=== PATIENT | male | born 1980 | race Caucasian/White ===

== ENCOUNTER 2018-01-17 16:54 | Outpatient (REF) | payer BC, SELFPAY ==
[2018-01-17 21:50] LABS: BUN 12 mg/dL (7-18); Calcium 9.2 mg/dL (8.5-10.1); Chloride 102 mmol/L (98-107); Cholesterol 211 mg/dL (50-200); Glucose 88 mg/dL (70-100); HDL Cholesterol 47 mg/dL (40-60); LDL CHOLESTEROL 142 mg/dL (<100); Potassium 3.7 mmol/L (3.5-5.1); Sodium 139 mmol/L (136-145); Triglyceride 89 mg/dL (30-150)
[2018-01-17 21:52] LABS: HCT 41.9 % (40.0-50.0); HGB 14.2 g/dL (13.5-17.5); Mean Corp. HGB Concentration 33.9 g/dL (32.0-36.0); Mean Corpuscular Hemoglobin 30.9 pg (27.0-33.0); Mean Corpuscular Volume 91.1 fL (80-95); Mean Platelet Volume 9.4 fL (8.0-11.0); Platelet Count 329 x1000/uL (130-400); RBC Distribution Width 12.8 % (11.8-14.1); White Blood Cell Count 9.45 k/cumm (4.4-10.8)
== END 2018-01-17 17:14 ==
LOC: NCHCN 16:54
PROVIDERS: PCP Nurse Practitioner Family; Visit Provider Nurse Practitioner Family
DX: Z00.00 Encounter for general adult medical examination without abnormal findings (principal); Z13.228 Encounter for screening for other metabolic disorders; Z13.220 Encounter for screening for lipoid disorders; Z86.2 Personal history of diseases of the blood and blood-forming organs and certain disorders involving the immune mechanism
CPT/HCPCS: 80048; 80061; 83721; 85027

== ENCOUNTER 2020-06-04 18:00 | Outpatient (REF) | payer BC, SELFPAY ==
[2020-06-04 14:53] LABS: ALT 29 U/L (16-63); AST 16 U/L (15-37); Albumin 4.1 g/dL (3.4-5.0); Alkaline Phosphatase 79 U/L (46-116); BUN 14 mg/dL (7-18); Bilirubin, Total 0.4 mg/dL (0.2-1.0); CREATININE 0.8 mg/dL (0.70-1.30); Calcium 8.9 mg/dL (8.5-10.1); Calculated LDL 126 mg/dL (<100); Chloride 105 mmol/L (98-107); Cholesterol 192 mg/dL (<200); Glucose 91 mg/dL (74-106); HDL Cholesterol 61 mg/dL (40-60); Potassium 3.7 mmol/L (3.5-5.1); Sodium 143 mmol/L (136-145); Total Protein 7.8 g/dL (6.4-8.2); Triglyceride 26 mg/dL (<150)
== END 2020-06-04 18:01 | disposition home or self-care (01) ==
LOC: NCHCN 18:00
PROVIDERS: PCP Nurse Practitioner Family; Visit Provider Nurse Practitioner Family
DX: Z00.00 Encounter for general adult medical examination without abnormal findings (principal); Z13.220 Encounter for screening for lipoid disorders; Z13.228 Encounter for screening for other metabolic disorders
CPT/HCPCS: 80053; 80061

== ENCOUNTER 2020-07-07 14:37 | Outpatient (REF) | payer BC, SELFPAY ==
[2020-07-07 21:40] LABS: HCT 39.5 % (40.0-50.0); HGB 13.4 g/dL (13.5-17.5); MCH 31.3 pg (27.0-33.0); MCHC 33.9 % (32.0-36.0); MCV 92.3 fL (80-95); MPV 9.5 fL (8.0-11.0); Platelet Count 300 10^3/uL (130-400); RBC 4.28 10^6/uL (4.36-5.78); RDW 11.9 % (11.8-14.1); RDW-SD 40.1 fL; WBC 6.85 10^3/uL (4.4-10.8)
[2020-07-07 22:16] LABS: TSH (W/Ref FT4) 0.55 uIU/mL (0.36-3.74); Vitamin B12 229 pg/mL (193-986)
[2020-07-09 05:01] LABS: Vitamin D 25 Total 10.6 ng/mL (30-100)
== END 2020-07-07 14:38 | disposition home or self-care (01) ==
LOC: NCHCN 14:37
PROVIDERS: PCP Nurse Practitioner Family; Visit Provider Nurse Practitioner Family
DX: R53.83 Other fatigue (principal); Z79.899 Other long term (current) drug therapy
CPT/HCPCS: 82306; 85027; 82607; 84443

== ENCOUNTER 2020-08-31 12:20 | Outpatient (REF) | payer BC, SELFPAY ==
[2020-08-31 22:03] LABS: Vitamin D 25 Total 31.3 ng/mL (30-100)
[2020-08-31 22:08] LABS: Vitamin B12 444 pg/mL (193-986)
== END 2020-08-31 12:21 | disposition home or self-care (01) ==
LOC: NCHCN 12:20
PROVIDERS: PCP Nurse Practitioner Family; Visit Provider Nurse Practitioner Family
DX: D64.9 Anemia, unspecified (principal); E55.9 Vitamin D deficiency, unspecified
CPT/HCPCS: 82306; 82607

== ENCOUNTER 2021-07-01 13:41 | Outpatient (REF) | payer BC, SELFPAY ==
[2021-07-01 21:03] LABS: ALT 22 U/L (16-63); AST 13 U/L (15-37); Alkaline Phosphatase 87 U/L (46-116); Anion Gap 8.3 mmol/L (3-11); BUN 14 mg/dL (7-18); Bilirubin, Total 0.3 mg/dL (0.2-1.0); CO2 29.7 mmol/L (21.0-32.0); Calcium 8.8 mg/dL (8.5-10.1); Calculated LDL 156 mg/dL (<100); Chloride 104 mmol/L (98-107); Cholesterol 225 mg/dL (<200); Glucose 91 mg/dL (74-106); HDL Cholesterol 53 mg/dL (40-60); Sodium 142 mmol/L (136-145); Triglyceride 80 mg/dL (<150)
== END 2021-07-01 13:42 | disposition home or self-care (01) ==
LOC: NCHCN 13:41
PROVIDERS: PCP Nurse Practitioner Family; Visit Provider Nurse Practitioner Family
DX: Z00.00 Encounter for general adult medical examination without abnormal findings (principal); Z13.220 Encounter for screening for lipoid disorders; Z13.228 Encounter for screening for other metabolic disorders
CPT/HCPCS: 80053; 80061

== ENCOUNTER 2021-12-28 18:01 | Outpatient (REF) | payer BC, SELFPAY ==
[2021-12-28 21:08] LABS: HCT 38.4 % (40.0-50.0); HGB 12.7 g/dL (13.5-17.5); MCH 30.4 pg (27.0-33.0); MCHC 33.1 % (32.0-36.0); MCV 92 fL (80-95); MPV 9.3 fL (8.0-11.0); Platelet Count 315 10^3/uL (130-400); RBC 4.18 10^6/uL (4.36-5.78); RDW 11.9 % (11.8-14.1); RDW-SD 40.3 fL; WBC 7.64 10^3/uL (4.4-10.8)
[2021-12-28 21:53] LABS: ALT 20 U/L (16-63); AST 19 U/L (15-37); Albumin 3.8 g/dL (3.4-5.0); Alkaline Phosphatase 80 U/L (46-116); Anion Gap 5.6 mmol/L (3-11); BUN 17 mg/dL (7-18); Bilirubin, Total 0.3 mg/dL (0.2-1.0); CO2 30.4 mmol/L (21.0-32.0); CREATININE 1.1 mg/dL (0.70-1.30); Calcium 8.6 mg/dL (8.5-10.1); Chloride 102 mmol/L (98-107); Estimated GFR 87.57 (mL/min/1.73m2); Glucose 90 mg/dL (74-106); Potassium 3.4 mmol/L (3.5-5.1); Sodium 138 mmol/L (136-145); TSH (W/Ref FT4) 1.38 uIU/mL (0.36-3.74); Total Protein 7.8 g/dL (6.4-8.2); Vitamin B12 901 pg/mL (193-986)
== END 2021-12-28 18:02 | disposition home or self-care (01) ==
LOC: NCHCN 18:01
PROVIDERS: PCP Nurse Practitioner Family; Visit Provider Nurse Practitioner Family
DX: R53.83 Other fatigue (principal)
CPT/HCPCS: 80053; 85027; 82607; 84443

== ENCOUNTER 2022-02-10 13:36 | Outpatient (REF) | payer BC, SELFPAY ==
[2022-02-10 21:07] LABS: Abs Immature Grans 0.02 10^3/uL (0.0-0.06); Absolute Basophil Count 0.03 10^3/uL (0.0-0.2); Absolute Eosinophil Count 0.17 10^3/uL (0.0-0.7); Absolute Lymphocyte Count 2.69 10^3/uL (1.2-3.4); Absolute Monocyte Count 0.82 10^3/uL (0.1-0.8); Absolute Neutrophil Count 4.71 10^3/uL (1.2-6.7); Basophils % 0.4; HCT 40.1 % (40.0-50.0); HGB 13.4 g/dL (13.5-17.5); Immature Grans % 0.2; Lymphocytes % 31.9; MCH 30.7 pg (27.0-33.0); MCHC 33.4 % (32.0-36.0); MCV 92 fL (80-95); MPV 9.2 fL (8.0-11.0); Monocytes % 9.7; Neutrophils % 55.8; Platelet Count 321 10^3/uL (130-400); RBC 4.37 10^6/uL (4.36-5.78); RDW-SD 40.5 fL; WBC 8.44 10^3/uL (4.4-10.8)
[2022-02-10 21:26] LABS: Ferritin 406 ng/mL (26-388)
[2022-02-10 22:40] LABS: Iron 74 ug/dL (65-175); Total Iron Binding Capacity 240 ug/dL (250-450); Transferrin Sat 31 % (20-55)
[2022-02-10 23:43] LABS: Vitamin D 25 Total 26.9 ng/mL (30-100)
== END 2022-02-10 13:37 | disposition home or self-care (01) ==
LOC: NCHCN 13:36
PROVIDERS: PCP Nurse Practitioner Family; Visit Provider Nurse Practitioner Family
DX: D64.9 Anemia, unspecified (principal); E55.9 Vitamin D deficiency, unspecified
CPT/HCPCS: 82306; 82728; 83540; 83550; 85025

== ENCOUNTER 2022-04-20 11:40 | Outpatient (REF) | payer BC, SELFPAY ==
[2022-04-20 16:00] LABS: Vitamin D 25 Total 30.7 ng/mL (30-100)
== END 2022-04-20 11:41 | disposition home or self-care (01) ==
LOC: NCHCN 11:40
PROVIDERS: PCP Nurse Practitioner Family; Visit Provider Family Medicine
DX: E55.9 Vitamin D deficiency, unspecified (principal)
CPT/HCPCS: 82306

== ENCOUNTER 2023-06-27 11:23 | Outpatient (REF) | payer BC, SELFPAY ==
[2023-06-27 14:28] LABS: HGB 13.6 g/dL (13.5-17.5); MCV 91 fL (80-95); MPV 9.5 fL (8.0-11.0); Platelet Count 301 10^3/uL (130-400); RBC 4.39 10^6/uL (4.36-5.78); RDW 12.3 % (11.8-14.1); RDW-SD 41.1 fL; WBC 7.05 10^3/uL (4.4-10.8)
[2023-06-27 15:03] LABS: ALT 26 U/L (16-63); AST 21 U/L (15-37); Albumin 3.8 g/dL (3.4-5.0); Alkaline Phosphatase 84 U/L (46-116); Anion Gap 6.8 mmol/L (3-11); BUN 17 mg/dL (7-18); Bilirubin, Total 0.3 mg/dL (0.2-1.0); CO2 30.2 mmol/L (21.0-32.0); CREATININE 1.1 mg/dL (0.70-1.30); Calcium 9.2 mg/dL (8.5-10.1); Chloride 104 mmol/L (98-107); Estimated GFR 86.49 (mL/min/1.73m2); Ferritin 262 ng/mL (26-388); Glucose 104 mg/dL (74-106); Potassium 4.3 mmol/L (3.5-5.1); Sodium 141 mmol/L (136-145); Total Protein 7.9 g/dL (6.4-8.2)
== END 2023-06-27 11:24 | disposition home or self-care (01) ==
LOC: NCHCN 11:23
PROVIDERS: PCP Nurse Practitioner Family; Visit Provider Nurse Practitioner Family
DX: R53.83 Other fatigue (principal); E66.9 Obesity, unspecified; E55.9 Vitamin D deficiency, unspecified
CPT/HCPCS: 80053; 82306; 85027; 82728